=== PATIENT | female | born 1985 | race Caucasian/White ===

== ENCOUNTER 2017-12-08 12:07 | Emergency (ER) | payer OTHER ==
[2017-12-08 12:17] VITALS: BP 122/72; PULSE 94; O2SAT 96
[2017-12-08] MEDS ORDERED: TORAdol 30 mg Injection IM ONE (12:23)
--- NOTE | 2017-12-08 12:23 | ERPHSYRPT ---
- History of Present Illness Time Seen by Provider: 12/08/17 12:19 Source: patient Exam Limitations: no limitations Patient Subjective Stated Complaint: pt reports her right ankle/foot got caught between 2 stepping stones this morning bonny [id number] and rolled-reports pain that radiates up to thigh-denies numbness or tinlging Triage Nursing Assessment: pt pink warm and dry-swelling bruising and superficial abrasion noted to right ankle-pedal pulse present and strong Physician History: The patient is a 32-year-old female complaining of twisting her right ankle this morning while helping her mother move. The patient is here from [facility] to help her mother. She now has swelling and severe pain to the outside of her right ankle. She denies numbness or tingling. It hurts for her to walk on it. Her past medical history is unremarkable. Occurred: this morning Reason for Fall: tripped, fell from standing pos Injuries/Pain Location: lower extremity (right ankle) Loss of Consciousness: no loss of consciousness Quality: sharpness Severity of Pain-Max: moderate Severity of Pain-Current: moderate Modifying Factors: Improves With: pain medication (ibuprofen) Associated Symptoms (Fall): trouble walking Allergies/Adverse Reactions: No Known Drug Allergies Allergy (Unverified 12/08/17 12:17) Hx Tetanus, Diphtheria Vaccination/Date Given: Yes Hx Influenza Vaccination/Date Given: Yes Hx Pneumococcal Vaccination/Date Given: No Immunizations Up to Date: Yes - Review of Systems Constitutional: No Fever, No Chills Eyes: No Symptoms Ears, Nose, & Throat: No Symptoms Respiratory: No Cough, No Dyspnea Cardiac: No Chest Pain, No Edema, No Syncope Abdominal/Gastrointestinal: No Abdominal Pain, No Nausea, No Vomiting, No Diarrhea Genitourinary Symptoms: No Dysuria Musculoskeletal: Fall, Injury, Joint Pain, Joint Swelling Skin: No Rash Neurological: No Dizziness, No Focal Weakness, No Sensory Changes Psychological: No Symptoms Endocrine: No Symptoms Hematologic/Lymphatic: No Symptoms Immunological/Allergic: No Symptoms All Other Systems: Reviewed and Negative - Past Medical History Pertinent Past Medical History: No - Past Surgical History Past Surgical History: No - Social History Smoking Status: Current every day smoker How long have you smoked: yrs Exposure to second hand smoke: Yes Drug Use: none Patient Lives Alone: No - Female History Hx Last Menstrual Period: last week Hx Now: No - Nursing Vital Signs Nursing Vital Signs: Initial Vital Signs Pulse Rate 94 H 12/08/17 12:13 Respiratory Rate 18 12/08/17 12:13 Blood Pressure 122/72 12/08/17 12:13 O2 Sat by Pulse Oximetry 96 12/08/17 12:13 Pain Scale Pain Intensity 9 - Jamison Coma Score Best Eye Response (Jamison): (4) open spontaneously Best Verbal Response ([place]): (5) oriented Best Motor Response (Jamison): (6) obeys commands Jamison Total: 15 - Physical Exam General Appearance: no apparent distress, alert Head Injury: no evidence of injury Eye Exam: PERRL/EOMI ENT Exam: airway nml Neck Exam: normal inspection, No tenderness Respiratory/Chest Exam: normal breath sounds, No chest tenderness, No respiratory distress Cardiovascular Exam: normal heart sounds, regular rate/rhythm Gastrointestinal Exam: soft, No tenderness, No distention, No guarding, No ecchymosis Rectal Exam: not done Back Exam: normal inspection, No vertebral tenderness Extremity Exam: joint swelling, limited range of motion, pain with movement, weight bearing, swelling, tenderness (right ankle: swelling and tenderness over lateral malleolus) Neurologic Exam: alert, oriented x 3, cooperative, sensation nml, No motor deficits Skin Exam: normal color, warm, dry SpO2 Interpretation: normal SpO2: 96 Oxygen Delivery: Room Air - Radiology Exams Right Ankle X-ray Interpretation: Reviewed by me, Teleradiologist Report (per Dr Osuna), Negative, No Fracture, No Subluxation Ordered Tests: Active Orders 24 hr Category Date Time Status Cold Application STAT Care 12/08/17 12:23 Active ANKLE (3 VIEWS) Stat Exams 12/08/17 12:23 Completed Medication Summary Discontinued Medications Generic Name Dose Route Start Last Admin Trade Name Freq PRN Reason Stop Dose Admin Ketorolac Tromethamine 60 mg 12/08/17 12:23 12/08/17 12:35 Toradol 30 Mg Injection IM 12/08/17 12:24 60 mg STAT ONE Administration Ketorolac Tromethamine Confirm 12/08/17 12:31 Toradol 30 Mg Injection Administered 12/08/17 12:32 Dose 60 mg .ROUTE .STK-MED ONE - Progress Progress: unchanged Counseled pt/family regarding: diagnosis, rad results - Departure Time of Disposition: 13:06 Departure Disposition: Home Clinical Impression: Moderate right ankle sprain Condition: Stable Critical Care Time: No Referrals: ALBINA VAUGHAN MD [Primary Care Provider] - Additional Instructions: You have a moderate sprain of your right ankle. There are no broken bones. You were given Toradol 60 mg by IM in the ER. You may continue to take naproxen 500 mg every 12 hours as needed. Elevate your ankle as much as possible over the next 1-2 days. Apply ice for 15-20 minutes 3 times a day for the next 2 days. You were given a work excuse for today and tomorrow. Follow- up with your primary medical doctor as needed. Use Benjamín wrap as needed for comfort. Also use the crutches as needed for comfort. Prescriptions: Naproxen 500 mg PO BID PRN #30 tablet.
[2017-12-08] MEDS ORDERED: TORAdol 30 mg Injection ONE (12:31)
--- NOTE | 2017-12-08 12:55 | XRAY ---
Indication: Pain following injury. Comparison: None 3 views of the right ankle demonstrates lateral soft tissue swelling. No other bony, articular, or soft tissue abnormalities.
== END 2017-12-08 13:23 | disposition home or self-care (01) ==
LOC: ED 12:07
DX: S93.401A Sprain of unspecified ligament of right ankle, initial encounter (principal); W23.0XXA Caught, crushed, jammed, or pinched between moving objects, initial encounter; Y93.01 Activity, walking, marching and hiking; Y92.89 Other specified places as the place of occurrence of the external cause; Z72.0 Tobacco use
CPT/HCPCS: 73610; 96372; 99284; J1885

== ENCOUNTER 2018-10-23 13:46 | Emergency (ER) | payer OTHER ==
--- NOTE | 2018-10-23 14:12 | ERPHSYRPT ---
- History of Present Illness Time Seen by Provider: 10/23/18 14:10 Historian: patient Exam Limitations: no limitations Patient Subjective Stated Complaint: states has had lower abd cramping for one week. vaginal spotting two days ago. is 9 weeks . states had bm today and it was very dark. denies any vaginal bleeding or urinary symptoms at this time. Triage Nursing Assessment: ambulated to room per self. skin w/d, color normal, resp easy. abd soft but tender in lower abd, especially on left side. urine is clear in color. normal bowel sounds. Physician History: Ms Conner is a 33 years old female patient states has had lower abd cramping for one week. vaginal spotting two days ago. is 9 weeks . states had bm today and it was very dark. denies any vaginal bleeding or urinary symptoms at this time. She had sexual intercourse yesterday Timing/Duration: today Quality: cramping Abdominal Pain Onset Location: suprapubic Pain Radiation: no radiation Severity of Pain-Max: mild Severity of Pain-Current: mild Modifying Factors: Improves With: nothing Associated Symptoms: other (9 weeks ) Allergies/Adverse Reactions: No Known Drug Allergies Allergy (Verified 10/23/18 14:08) Home Medications: Vits W-Ca,Fe,FA(<1Mg) [] 1 each PO DAILY 10/23/18 [History] Hx Tetanus, Diphtheria Vaccination/Date Given: No Hx Influenza Vaccination/Date Given: Yes Hx Pneumococcal Vaccination/Date Given: No - Review of Systems Constitutional: No Fever, No Chills Eyes: No Symptoms Ears, Nose, & Throat: No Symptoms Respiratory: No Cough, No Dyspnea Cardiac: No Chest Pain, No Edema, No Syncope Abdominal/Gastrointestinal: Abdominal Pain, No Nausea, No Vomiting, No Diarrhea Genitourinary Symptoms: , No Dysuria, No Frequency, No Hematuria, No Hesitancy, No Menorrhagia, No Vaginal Bleeding, No Vaginal Discharge Musculoskeletal: No Back Pain, No Neck Pain Skin: No Rash Neurological: No Dizziness, No Focal Weakness, No Sensory Changes Psychological: No Symptoms Endocrine: No Symptoms All Other Systems: Reviewed and Negative - Past Medical History Pertinent Past Medical History: Yes Female Reproductive Disorders: Cervical Cancer - Past Surgical History Past Surgical History: Yes Female Surgical History: Other Other Surgical History: leep procedure - Social History Smoking Status: Current every day smoker How long have you smoked: 15 Exposure to second hand smoke: Yes Drug Use: none Patient Lives Alone: No - Female History Hx Last Menstrual Period: 08/16/18 Hx Now: Yes - Nursing Vital Signs Nursing Vital Signs: Initial Vital Signs Temperature 98.1 F 10/23/18 13:50 Pulse Rate 80 10/23/18 13:50 Respiratory Rate 16 10/23/18 13:50 Blood Pressure 107/69 10/23/18 13:50 O2 Sat by Pulse Oximetry 100 10/23/18 13:50 Pain Scale Pain Intensity 7 - Physical Exam General Appearance: no apparent distress, alert Eye Exam: PERRL/EOMI, eyes nml inspection Ears, Nose, Throat Exam: normal ENT inspection, pharynx normal, moist mucous membranes Neck Exam: normal inspection, non-tender, supple, full range of motion Respiratory Exam: normal breath sounds, lungs clear, No respiratory distress Cardiovascular Exam: regular rate/rhythm, normal heart sounds Gastrointestinal/Abdomen Exam: soft, No tenderness, No mass Back Exam: normal inspection, normal range of motion, No CVA tenderness, No vertebral tenderness Extremity Exam: normal inspection, normal range of motion, pelvis stable Neurologic Exam: alert, oriented x 3, cooperative, normal mood/affect, nml cerebellar function, sensation nml, No motor deficits Skin Exam: normal color, warm, dry SpO2: 100 - Course Nursing assessment & vital signs reviewed: Yes Ordered Tests: Active Orders 24 hr Category Date Time Status CBC W DIFF Stat Lab 10/23/18 14:10 Completed CMP Stat Lab 10/23/18 14:10 Completed CULTURE,URINE Stat Lab 10/23/18 14:00 Received HCG QUALITATIVE,SERUM Stat Lab 10/23/18 14:10 Completed UA W/RFX UR CULTURE Stat Lab 10/23/18 14:00 Completed Medication Summary Discontinued Medications Generic Name Dose Route Start Last Admin Trade Name Freq PRN Reason Stop Dose Admin Ceftriaxone Sodium 1,000 mg 10/23/18 14:43 Rocephin 1000 Mg Inj IM 10/23/18 14:44 STAT ONE Lab/Rad Data: Laboratory Result Diagrams 10/23/18 14:10 10/23/18 14:10 Laboratory Results 10/23/18 10/23/18 10/23/18 Range/Units 14:10 14:10 14:10 WBC 6.0 (4.0-10.5) K/mm3 RBC 4.32 (4.1-5.4) M/mm3 Hgb 11.6 L (12.0-16.0) gm/dl Hct 35.4 (35-47) % MCV 81.9 (78-100) fl MCH 26.8 (26-32) pg MCHC 32.8 (32-36) g/dl RDW 14.2 H (11.5-14.0) % Plt Count 316 (150-450) K/mm3 MPV 9.8 H (6-9.5) fl Gran % 70.4 H (36.0-66.0) % Eos # (Auto) 0.04 (0-0.5) Absolute Lymphs (auto) 1.28 (1.0-4.6) Absolute Monos (auto) 0.40 (0.0-1.3) Lymphocytes % 21.5 L (24.0-44.0) % Monocytes % 6.7 (0.0-12.0) % Eosinophils % 0.7 (0.00-5.0) % Basophils % 0.7 (0.0-0.4) % Absolute Granulocytes 4.19 (1.4-6.9) Basophils # 0.04 (0-0.4) Sodium 138 (137-145) mmol/L Potassium 3.7 (3.5-5.1) mmol/L Chloride 103 (98-107) mmol/L Carbon Dioxide 24 (22-30) mmol/L Anion Gap 15.3 H (5-15) MEQ/L BUN 7 (7-17) mg/dL Creatinine 0.40 L (0.52-1.04) mg/dL Estimated GFR > 60.0 ML/MIN Glucose 97 (74-106) mg/dL Calcium 9.0 (8.4-10.2) mg/dL Total Bilirubin 0.40 (0.2-1.3) mg/dL AST 17 (14-36) U/L ALT 12 (0-35) U/L Alkaline Phosphatase 46 (38-126) U/L Serum Total Protein 6.9 (6.3-8.2) g/dL Albumin 3.7 (3.5-5.0) g/dL Serum , Qual POSITIVE (Negative) Urine Color (YELLOW) Urine Appearance (CLEAR) Urine pH (5-6) Ur Specific [place] (1.005-1.025) Urine Protein (Negative) Urine Ketones (NEGATIVE) Urine Blood (0-5) Ozzie/ul Urine Nitrite (NEGATIVE) Urine Bilirubin (NEGATIVE) Urine Urobilinogen (0-1) mg/dL Ur Leukocyte Esterase (NEGATIVE) Urine WBC (Auto) (0-5) /HPF Urine RBC (Auto) (0-2) /HPF U Epithel Cells (Auto) (FEW) /HPF Urine Bacteria (Auto) (NEGATIVE) /HPF Urine Mucus (Auto) (NEGATIVE) /HPF Urine Culture Reflexed (NO) Urine Glucose (NEGATIVE) mg/dL 10/23/18 Range/Units 14:00 WBC (4.0-10.5) K/mm3 RBC (4.1-5.4) M/mm3 Hgb (12.0-16.0) gm/dl Hct (35-47) % MCV (78-100) fl MCH (26-32) pg MCHC (32-36) g/dl RDW (11.5-14.0) % Plt Count (150-450) K/mm3 MPV (6-9.5) fl Gran % (36.0-66.0) % Eos # (Auto) (0-0.5) Absolute Lymphs (auto) (1.0-4.6) Absolute Monos (auto) (0.0-1.3) Lymphocytes % (24.0-44.0) % Monocytes % (0.0-12.0) % Eosinophils % (0.00-5.0) % Basophils % (0.0-0.4) % Absolute Granulocytes (1.4-6.9) Basophils # (0-0.4) Sodium (137-145) mmol/L Potassium (3.5-5.1) mmol/L Chloride (98-107) mmol/L Carbon Dioxide (22-30) mmol/L Anion Gap (5-15) MEQ/L BUN (7-17) mg/dL Creatinine (0.52-1.04) mg/dL Estimated GFR ML/MIN Glucose (74-106) mg/dL Calcium (8.4-10.2) mg/dL Total Bilirubin (0.2-1.3) mg/dL AST (14-36) U/L ALT (0-35) U/L Alkaline Phosphatase (38-126) U/L Serum Total Protein (6.3-8.2) g/dL Albumin (3.5-5.0) g/dL Serum , Qual (Negative) Urine Color YELLOW (YELLOW) Urine Appearance CLEAR (CLEAR) Urine pH 8.0 (5-6) Ur Specific [place] 1.009 (1.005-1.025) Urine Protein NEGATIVE (Negative) Urine Ketones NEGATIVE (NEGATIVE) Urine Blood NEGATIVE (0-5) Ozzie/ul Urine Nitrite NEGATIVE (NEGATIVE) Urine Bilirubin NEGATIVE (NEGATIVE) Urine Urobilinogen NEGATIVE (0-1) mg/dL Ur Leukocyte Esterase SMALL (NEGATIVE) Urine WBC (Auto) 16-25 (0-5) /HPF Urine RBC (Auto) 0-2 (0-2) /HPF U Epithel Cells (Auto) RARE (FEW) /HPF Urine Bacteria (Auto) RARE (NEGATIVE) /HPF Urine Mucus (Auto) SLIGHT (NEGATIVE) /HPF Urine Culture Reflexed YES (NO) Urine Glucose NEGATIVE (NEGATIVE) mg/dL - Progress Progress: improved, pain not gone completely Counseled pt/family regarding: lab results, diagnosis, need for follow-up - Departure Departure Disposition: Home Clinical Impression: UTI (urinary tract infection) in in first trimester Condition: Stable Critical Care Time: No Instructions: Urinary Tract Infections in Additional Instructions: URINARY TRACT INFECTION 1. You will need to drink plenty of fluids in order to keep your urinary system flushed. These fluids should mainly consist of water and juices. 2. Take medications as directed. You need to completely finish any antiobiotic prescription given. 3. Try to avoid coffee, tea, alcohol, and seasoned foods as they may cause bladder irritation. 4. If signs and symptoms persist after 3-4 days, you will need to follow up with your family physician. 5. Female Patients: A. Avoid intercourse for 3-4 days. B. Empty bladder before and after intercourse to reduce risk of re- infection. C. After emptying bladder, wipe from front to back to reduce the risk of re- infection. Discharge/Care Plan AMELIE CONNER was seen on 10/23/18 in the Emergency Room. The patient was counseled regarding Diagnosis,Lab results, Imaging studies, need for follow up and when to return to the Emergency Room. Prescriptions given: Discharge Note I have spoken with the patient and/or caregivers. I have explained the patient' s condition, diagnosis and treatment plan based on the information available to me at this time. I have answered the patient's and/or caregiver's questions and addressed any concerns. The patient and/or caregivers have as good understanding of the patient's diagnosis, condition and treatment plan as can be expected at this point. The vital signs have been stable. The patient's condition is stable and appropriate for discharge from the emergency department. The patient will pursue further outpatient evaluation with the primary care physician or other designated or consulting physician as outlined in the discharge instructions. The patient and/or caregivers are agreeable to this plan of care and follow-up instructions have been explained in detail. The patient and/or caregivers have received these instruction. The patient/and or caregivers are aware that any significant change in condition or worsening of symptoms should prompt an immediate return to this or the closest emergency department or call 911. Prescriptions: Nitrofurantoin Macro 100 mg [Macrobid 100MG Capsule] 100 mg PO BID #15 cap
[2018-10-23 14:20] LABS: BASOPHIL % 0.7 % (0.0-0.4); Basophil (Absolute #) 0.04 (0-0.4); Eosinophil % 0.7 % (0.00-5.0); Eosinophil (Absolute #) 0.04 (0-0.5); Granulocyte Absolute (ANC) 4.19 (1.4-6.9); Granulocytes % 70.4 % (36.0-66.0); Hematocrit 35.4 % (35-47); Hemoglobin 11.6 gm/dl (12.0-16.0); Lymphocyte (Absolute #) 1.28 (1.0-4.6); Lymphocytes % 21.5 % (24.0-44.0); Mean Cell Volume 81.9 fl (78-100); Mean Corpuscular Hgb Concent. 32.8 g/dl (32-36); Mean Platelet Volume 9.8 fl (6-9.5); Monocytes % 6.7 % (0.0-12.0); Platelet Count 316 K/mm3 (150-450); Red Blood Count 4.32 M/mm3 (4.1-5.4); Red Cell Distribution Width 14.2 % (11.5-14.0)
[2018-10-23 14:24] LABS: Appearance CLEAR (CLEAR); Bacteria RARE /HPF (NEGATIVE); Bilirubin NEGATIVE (NEGATIVE); Blood NEGATIVE Ery/ul (0-5); Epithelial Cells RARE /HPF (FEW); Glucose NEGATIVE (NEGATIVE); Ketones NEGATIVE (NEGATIVE); Leukocyte Esterase SMALL (NEGATIVE); Mucus SLIGHT /HPF (NEGATIVE); Nitrite NEGATIVE (NEGATIVE); Protein,Urine Dip NEGATIVE (Negative); RBC 0-2 /HPF (0-2); Specific Gravity 1.009 (1.005-1.025); Urobilinogen NEGATIVE mg/dL (0-1)
[2018-10-23 14:26] LABS: Mean Corpuscular Hemoglobin 26.8 pg (26-32)
[2018-10-23 14:28] LABS: ALBUMIN 3.7 g/dL (3.5-5.0); ALKALINE PHOSPHATASE 46 U/L (38-126); ANION GAP 15.3 MEQ/L (5-15); BLOOD UREA NITROGEN 7 mg/dL (7-17); CHLORIDE 103 mmol/L (98-107); Carbon Dioxide 24 mmol/L (22-30); Glucose 97 mg/dL (74-106); Potassium 3.7 mmol/L (3.5-5.1); SGOT/AST 17 U/L (14-36); SGPT/ALT 12 U/L (0-35); SODIUM 138 mmol/L (137-145); Total Protein 6.9 g/dL (6.3-8.2)
[2018-10-23] MEDS ORDERED: Rocephin 1000 MG INJ IM ONE (14:43)
[2018-10-23] MEDS ORDERED: XYLOCAINE 1% HCL 20 ML MDV ONE (14:47)
[2018-10-23] MEDS ORDERED: Rocephin 1000 MG INJ ONE (14:47)
[2018-10-23 14:58] VITALS: BP 106/75; PULSE 82; O2SAT 98
== END 2018-10-23 15:17 | disposition home or self-care (01) ==
LOC: ED 13:46
DX: O23.41 Unspecified infection of urinary tract in pregnancy, first trimester (principal); Z3A.09 9 weeks gestation of pregnancy
CPT/HCPCS: 36415; 80053; 81001; 81025; 85025; 87077; 87086; 87186; 96372; 99284; J0696